=== PATIENT | female | born 1960 | race Caucasian/White ===

== ENCOUNTER 2021-07-06 08:50 | Emergency (ER) | payer MEDICARE, OTHER ==
[~2021-07-06] VITALS: Ht 167.6 cm; Wt 64.9 kg
[2021-07-06] MEDS ORDERED: SINGULAIR4 M1 PO (10:55)
[2021-07-06] MEDS ORDERED: ZPAK PO (10:57)
[2021-07-06 11:05] VITALS: BP 119/89
== END 2021-07-06 11:06 | disposition home or self-care (01) ==
LOC: M.ERS 08:50
DX: U07.1 COVID-19 (principal); J45.909 Unspecified asthma, uncomplicated; E78.5 Hyperlipidemia, unspecified; Z85.828 Personal history of other malignant neoplasm of skin; Z88.5 Allergy status to narcotic agent; Z88.8 Allergy status to other drugs, medicaments and biological substances